=== PATIENT | male | born 1950 | race Caucasian/White ===

== ENCOUNTER 2021-06-18 16:27 | Emergency (ER) | payer MEDICARE ==
[2021-06-18 17:06] LABS: Hemoglobin 14.1 g/dL (14.0-18.0); Mean Corpuscular HGB CONC 32.5 g/dL (32.0-36.0); Mean Corpuscular Hemoglobin 29.8 pg (27.0-31.0); Mean Corpuscular Volume 91.6 fL (78.0-98.0); Mean Platelet Volume 8.4 fL (7.4-10.4); Platelet Count 218 thou/uL (130-400); RBC Distribution Width 14.2 % (11.5-14.5); Red Blood Cell (RBC) Count 4.72 mill/uL (4.70-6.10); White Blood Cell (WBC) Count 8.2 thou/uL (4.8-10.8)
[2021-06-18] MEDS ORDERED: Nitroglycerin 2% Ointment 1 INCH/1 GM Packet ONE (17:12)
[2021-06-18] MEDS ORDERED: Furosemide 40 MG/4 ML VIAL ONE (17:12)
[2021-06-18 17:14] LABS: ALT (SGPT) 60 U/L (8-55); Alkaline Phosphatase 114 U/L (40-110); BUN (Urea Nitrogen) 28 mg/dL (8.4-25.7); Bilirubin, Total 0.4 mg/dL (0.2-1.2); Calc. Creatinine Clearance 0 mL/min (70-130); Chloride 99 mmol/L (98-107); Globulin 3.8 g/dL (2.4-3.5); Protein, Total 7.8 g/dL (5.8-8.1)
[2021-06-18 17:56] LABS: Band 8 % (5-11); Eosinophils 2 % (0-10); Lymphocytes 26 % (21-51); MDiff Complete? YES; Monocytes 7 % (0-10); Neutrophil 55 % (42-75)
[2021-06-18 18:01] LABS: SARS-CoV-2 NAA Rapid Test Not Detected (NotDetected)
[2021-06-18 18:01] LABS: AST (SGOT) 34 U/L (5-34); Anion Gap 18 mmol/L (10-20); Calcium 9.4 mg/dL (7.8-10.44); Carbon Dioxide 29 mmol/L (23-31); Glucose 147 mg/dL (80-115); Potassium 4.7 mmol/L (3.5-5.1); Sodium 141 mmol/L (136-145)
== END 2021-06-18 19:46 | disposition short-term general hospital (02) ==
LOC: BURERS 16:27
DX: I11.0 Hypertensive heart disease with heart failure (principal); I50.9 Heart failure, unspecified; I48.92 Unspecified atrial flutter; E66.09 Other obesity due to excess calories; Z20.822 Contact with and (suspected) exposure to COVID-19; J44.9 Chronic obstructive pulmonary disease, unspecified; Z87.891 Personal history of nicotine dependence; Z79.82 Long term (current) use of aspirin
CPT/HCPCS: 71046; 80053; 83605; 83880; 84443; 84484; 85025; 93005; 94760; 96374; J1940; J7620; U0002

== ENCOUNTER 2021-07-03 14:15 | Inpatient (IN) | payer MEDICARE ==
[2021-07-03 15:27] LABS: #Basophils 0.1 thou/uL (0.0-0.2); #Eosinphils 0.1 thou/uL (0.0-0.7); #Lymphocytes 1.8 thou/uL (1.20-3.40); #Monocytes 1.1 thou/uL (0.11-0.59); #Neutrophils 8.1 thou/uL (1.40-6.50); %Basophils 0.5 % (0.0-1.0); %Lymphocytes 15.8 % (21.0-51.0); %Monocytes 9.7 % (0.0-10.0); Hemoglobin 14.1 g/dL (14.0-18.0); Mean Corpuscular HGB CONC 31.6 g/dL (32.0-36.0); Mean Corpuscular Hemoglobin 28.9 pg (27.0-31.0); Mean Corpuscular Volume 91.5 fL (78.0-98.0); Mean Platelet Volume 7.5 fL (7.4-10.4); Platelet Count 265 thou/uL (130-400); RBC Distribution Width 14.4 % (11.5-14.5); Red Blood Cell (RBC) Count 4.86 mill/uL (4.70-6.10); White Blood Cell (WBC) Count 11.1 thou/uL (4.8-10.8)
[2021-07-03 15:44] LABS: ALT (SGPT) 33 U/L (8-55); AST (SGOT) 18 U/L (5-34); Albumin 4.1 g/dL (3.4-4.8); Alkaline Phosphatase 86 U/L (40-110); Anion Gap 15 mmol/L (10-20); BUN (Urea Nitrogen) 31 mg/dL (8.4-25.7); Bilirubin, Total 0.5 mg/dL (0.2-1.2); Calc. Creatinine Clearance 0 mL/min (70-130); Calcium 9.7 mg/dL (7.8-10.44); Carbon Dioxide 30 mmol/L (23-31); Chloride 97 mmol/L (98-107); Globulin 3.8 g/dL (2.4-3.5); Glucose 149 mg/dL (80-115); Potassium 4.9 mmol/L (3.5-5.1); Protein, Total 7.9 g/dL (5.8-8.1); Sodium 137 mmol/L (136-145)
[2021-07-03 19:22] LABS: Base Excess-Venous 6.1 mmol/L (-2.0 to 3.0); Bicarbonate (HCO3v) 31.7 mmol/L (22.0-28.0); CO2 Tension (PvCO2) 47.5 mmHg (42.0-51.0); Calcium, Ionized 1.08 mmol/L (1.15-1.33); Chloride 97 mmol/L (98-107); Hemoglobin - Calc 17.6 g/dL (14.0-18.0); Potassium 4.9 mmol/L (3.5-5.1); Sodium 138 mmol/L (138-145); T. Carbon Dioxide 33.2 mmol/L (22.0-28.0); vO2 Saturation-calc 87.6 % (60.0-85.0)
[2021-07-03] MEDS ORDERED: Doxycycline 100 MG CAP ONE (21:16)
[2021-07-04] MEDS ORDERED: Doxycycline 100 MG CAP ONE (09:29)
[2021-07-04 11:18] LABS: SARS-CoV-2 NAA Rapid Test Not Detected (NotDetected)
[2021-07-04] MEDS ORDERED: Aspirin Chewable 81 MG TAB ONE (11:21)
[2021-07-04] MEDS ORDERED: Potassium Chloride 20 MEQ TAB ONE (11:21)
[2021-07-04] MEDS ORDERED: Carvedilol 6.25 MG TAB ONE (11:21)
[2021-07-04] MEDS ORDERED: Amlodipine 5 MG TAB ONE (11:21)
[2021-07-04] MEDS ORDERED: busPIRone HCl 5 MG TAB PO SCH (11:45)
[2021-07-04] MEDS ORDERED: Lorazepam 0.5 MG TAB ONE (11:46)
[2021-07-04] MEDS ORDERED: Furosemide 40 MG TAB ONE (11:46)
[2021-07-04] MEDS ORDERED: HYDROcodone/Acetaminophen 5/325 mg Tablet PO PRN (14:29)
[2021-07-04] MEDS ORDERED: Ondansetron ODT 4 MG TAB SL PRN (14:30)
[2021-07-04] MEDS ORDERED: Acetaminophen 325 MG TAB PO PRN (14:30)
[2021-07-04] MEDS ORDERED: Ondansetron PF 4 MG/2 ML Vial IVP PRN (14:30)
[2021-07-04 14:33] VITALS: BMI 47.9
[2021-07-04] MEDS ORDERED: methylPREDNISolone Sod Succ 40 MG VIAL IVP SCH (15:00)
[2021-07-04] MEDS ORDERED: Bisacodyl 10 MG SUPP PR PRN (15:29)
[2021-07-04] MEDS ORDERED: Bisacodyl 5 MG TAB PO PRN (15:29)
[2021-07-04] MEDS: Potassium Chloride 20 MEQ TAB PO SCH (18:17)
[2021-07-04] MEDS: Carvedilol 25 MG TAB PO SCH (18:18)
[2021-07-04] MEDS: Famotidine 20 MG TAB PO SCH (21:13)
[2021-07-04] MEDS: Apixaban 5 MG TAB PO SCH (21:13)
[2021-07-04] MEDS: methylPREDNISolone Sod Succ 40 MG VIAL IVP SCH (21:14)
[2021-07-04] MEDS: busPIRone HCl 5 MG TAB PO SCH (21:16)
[2021-07-05 06:44] LABS: #Monocytes 0.3 thou/uL (0.11-0.59); #Neutrophils 10.8 thou/uL (1.40-6.50); %Basophils 0.2 % (0.0-1.0); %Eosinophils 0.2 % (0.0-10.0); %Lymphocytes 8.3 % (21.0-51.0); %Monocytes 2.8 % (0.0-10.0); %Neutrophils 88.6 % (42.0-75.0); Hemoglobin 13.8 g/dL (14.0-18.0); Mean Corpuscular Hemoglobin 29.2 pg (27.0-31.0); Mean Corpuscular Volume 94.3 fL (78.0-98.0); Mean Platelet Volume 7.4 fL (7.4-10.4); Platelet Count 226 thou/uL (130-400); RBC Distribution Width 14.4 % (11.5-14.5); Red Blood Cell (RBC) Count 4.71 mill/uL (4.70-6.10); White Blood Cell (WBC) Count 12.2 thou/uL (4.8-10.8)
[2021-07-05 07:02] LABS: ALT (SGPT) 41 U/L (8-55); AST (SGOT) 26 U/L (5-34); Albumin 3.9 g/dL (3.4-4.8); Alkaline Phosphatase 79 U/L (40-110); Anion Gap 15 mmol/L (10-20); BUN (Urea Nitrogen) 33 mg/dL (8.4-25.7); Bilirubin, Total 0.2 mg/dL (0.2-1.2); Calc. Creatinine Clearance 127 mL/min (70-130); Calcium 8.9 mg/dL (7.8-10.44); Carbon Dioxide 29 mmol/L (23-31); Chloride 97 mmol/L (98-107); Globulin 3.8 g/dL (2.4-3.5); Glucose 296 mg/dL (80-115); Potassium 6.4 mmol/L (3.5-5.1); Protein, Total 7.7 g/dL (5.8-8.1); Sodium 135 mmol/L (136-145)
[2021-07-05] MEDS: Aspirin Chewable 81 MG TAB PO SCH (08:45)
[2021-07-05] MEDS: Potassium Chloride 20 MEQ TAB PO SCH (08:45)
[2021-07-05] MEDS: Amlodipine 10 MG TAB PO SCH (08:48)
[2021-07-05] MEDS: busPIRone HCl 5 MG TAB PO SCH ×2 (08:48→20:29)
[2021-07-05] MEDS: Famotidine 20 MG TAB PO SCH ×2 (08:49→20:30)
[2021-07-05] MEDS: Carvedilol 25 MG TAB PO SCH (08:49)
[2021-07-05] MEDS: Furosemide 40 MG TAB PO SCH ×2 (08:49→14:53)
[2021-07-05] MEDS: methylPREDNISolone Sod Succ 40 MG VIAL IVP SCH ×2 (08:50→20:28)
[2021-07-05] MEDS: Lisinopril 5 MG TAB PO SCH (08:51)
[2021-07-05] MEDS: Apixaban 5 MG TAB PO SCH ×3 (08:52→20:29)
[2021-07-05] MEDS ORDERED: Dextrose 50% Abboject 50 ML SYRINGE SLOW IVP PRN (12:54)
[2021-07-05] MEDS ORDERED: Dextrose 5% in Water 1,000 ML IV PRN (12:54)
[2021-07-05] MEDS ORDERED: HumaLOG 300 UNITS/3 ML VIAL SC PRN (12:54)
[2021-07-05 13:46] LABS: Potassium 5.7 mmol/L (3.5-5.1)
[2021-07-05] MEDS ORDERED: FLU VACC QS2021-22(65YR UP)/PF 240 MCG/0.7 ML SYRINGE IM ONE (15:00)
[2021-07-05] MEDS: Carvedilol 6.25 MG TAB PO SCH (17:27)
[2021-07-05] MEDS: HumaLOG 300 UNITS/3 ML VIAL SC PRN (17:33)
[2021-07-05] MEDS: Nicotine 21 MG PATCH TOP SCH (20:26)
[2021-07-05] MEDS: Nystatin Powder 15 GM BOT TOP PRN (22:56)
[2021-07-05] MEDS: Melatonin 3 MG TAB PO PRN (22:56)
[2021-07-06] MEDS ORDERED: Nicotine 21 MG PATCH TOP SCH (09:00)
[2021-07-06] MEDS: Lisinopril 5 MG TAB PO SCH (09:53)
[2021-07-06] MEDS: Aspirin Chewable 81 MG TAB PO SCH (09:53)
[2021-07-06] MEDS: busPIRone HCl 5 MG TAB PO SCH ×2 (09:54→20:56)
[2021-07-06] MEDS: Amlodipine 10 MG TAB PO SCH (09:55)
[2021-07-06] MEDS: Carvedilol 6.25 MG TAB PO SCH ×2 (09:55→15:17)
[2021-07-06] MEDS: Apixaban 5 MG TAB PO SCH ×2 (09:55→20:57)
[2021-07-06] MEDS: Famotidine 20 MG TAB PO SCH ×2 (09:55→20:57)
[2021-07-06] MEDS: Furosemide 40 MG TAB PO SCH ×2 (09:56→15:17)
[2021-07-06] MEDS: methylPREDNISolone Sod Succ 40 MG VIAL IVP SCH ×2 (09:56→20:56)
[2021-07-06] MEDS: HumaLOG 300 UNITS/3 ML VIAL SC PRN ×3 (09:57→17:31)
[2021-07-06 14:11] LABS: ALT (SGPT) 36 U/L (8-55); AST (SGOT) 16 U/L (5-34); Albumin 3.7 g/dL (3.4-4.8); Alkaline Phosphatase 89 U/L (40-110); Anion Gap 13 mmol/L (10-20); BUN (Urea Nitrogen) 32 mg/dL (8.4-25.7); Bilirubin, Total 0.3 mg/dL (0.2-1.2); Calc. Creatinine Clearance 131 mL/min (70-130); Calcium 8.7 mg/dL (7.8-10.44); Carbon Dioxide 33 mmol/L (23-31); Chloride 92 mmol/L (98-107); Globulin 3.1 g/dL (2.4-3.5); Glucose 300 mg/dL (80-115); Potassium 4.9 mmol/L (3.5-5.1); Protein, Total 6.8 g/dL (5.8-8.1); Sodium 133 mmol/L (136-145)
[2021-07-06] MEDS ORDERED: methylPREDNISolone Sod Succ 40 MG VIAL IVP SCH (17:45)
[2021-07-06] MEDS: Nystatin Powder 15 GM BOT TOP PRN (20:56)
[2021-07-06] MEDS: Nicotine 21 MG PATCH TOP SCH (20:56)
[2021-07-06] MEDS: Melatonin 3 MG TAB PO PRN (23:22)
[2021-07-07 05:36] LABS: Hemoglobin 13.9 g/dL (14.0-18.0); Platelet Count 267 thou/uL (130-400)
[2021-07-07] MEDS: Amlodipine 10 MG TAB PO SCH (10:21)
[2021-07-07] MEDS: Furosemide 40 MG TAB PO SCH ×2 (10:22→12:27)
[2021-07-07] MEDS: Lisinopril 5 MG TAB PO SCH (10:23)
[2021-07-07] MEDS: Famotidine 20 MG TAB PO SCH ×2 (10:23→20:57)
[2021-07-07] MEDS: Apixaban 5 MG TAB PO SCH ×2 (10:23→20:57)
[2021-07-07] MEDS: Aspirin Chewable 81 MG TAB PO SCH (10:24)
[2021-07-07] MEDS: HumaLOG 300 UNITS/3 ML VIAL SC PRN ×3 (10:27→16:57)
[2021-07-07] MEDS: methylPREDNISolone Sod Succ 40 MG VIAL IVP SCH ×2 (10:28→21:01)
[2021-07-07] MEDS: busPIRone HCl 5 MG TAB PO SCH (10:42)
[2021-07-07] MEDS: Carvedilol 6.25 MG TAB PO SCH ×2 (10:42→16:56)
[2021-07-07] MEDS ORDERED: hydrOXYzine 25 MG TAB PO PRN (17:25)
[2021-07-07] MEDS: Nystatin Powder 15 GM BOT TOP PRN (18:46)
[2021-07-07] MEDS: Nicotine 21 MG PATCH TOP SCH ×2 (20:53→21:00)
[2021-07-07] MEDS: traZODone HCl 50 MG TAB PO PRN (20:56)
[2021-07-08] MEDS: Furosemide 40 MG TAB PO SCH (08:44)
[2021-07-08] MEDS: Aspirin Chewable 81 MG TAB PO SCH (08:44)
[2021-07-08] MEDS: Famotidine 20 MG TAB PO SCH ×2 (08:44→20:40)
[2021-07-08] MEDS: Carvedilol 6.25 MG TAB PO SCH ×2 (08:44→17:12)
[2021-07-08] MEDS: methylPREDNISolone Sod Succ 40 MG VIAL IVP SCH ×2 (08:44→20:38)
[2021-07-08] MEDS: Amlodipine 10 MG TAB PO SCH (08:44)
[2021-07-08] MEDS: Apixaban 5 MG TAB PO SCH ×2 (08:45→20:41)
[2021-07-08] MEDS: Lisinopril 5 MG TAB PO SCH (08:45)
[2021-07-08] MEDS: HumaLOG 300 UNITS/3 ML VIAL SC PRN ×3 (08:57→17:14)
[2021-07-08] MEDS ORDERED: Escitalopram Oxalate 10 mg Tablet PO SCH (09:00)
[2021-07-08] MEDS ORDERED: Furosemide 40 MG TAB PO SCH (14:00)
[2021-07-08] MEDS ORDERED: Acetaminophen 325 MG TAB PO PRN (17:07)
[2021-07-08] MEDS ORDERED: HYDROcodone/Acetaminophen 5/325 mg Tablet PO PRN (17:08)
[2021-07-08 18:16] VITALS: BP 133/71; TEMP 98.3
[2021-07-08] MEDS ORDERED: Nicotine 21 MG PATCH TOP SCH (21:00)
[2021-07-08] MEDS: traZODone HCl 50 MG TAB PO PRN (21:05)
[2021-07-09] MEDS ORDERED: Furosemide 40 MG TAB PO SCH (06:00)
[2021-07-09] MEDS ORDERED: Amlodipine 10 MG TAB PO SCH (09:00)
== END 2021-07-08 21:40 | disposition swing bed (61) | DRG 189 ==
LOC: BURERS 14:15 → BURMED 07-04 11:24
PROVIDERS: ADMIT Family Medicine; ATTEND Family Medicine
DX: J96.21 Acute and chronic respiratory failure with hypoxia (principal); J44.1 Chronic obstructive pulmonary disease with (acute) exacerbation; Z68.42 Body mass index [BMI] 45.0-49.9, adult; I50.9 Heart failure, unspecified; I48.91 Unspecified atrial fibrillation; I11.0 Hypertensive heart disease with heart failure; J44.9 Chronic obstructive pulmonary disease, unspecified; Z20.822 Contact with and (suspected) exposure to COVID-19; F41.9 Anxiety disorder, unspecified; E66.01 Morbid (severe) obesity due to excess calories; Z87.891 Personal history of nicotine dependence; Z79.01 Long term (current) use of anticoagulants
CPT/HCPCS: 36415; 36416; 71046; 80053; 82330; 82565; 82803; 83880; 84484; 85014; 85018; 85025; 85049; 93005; 96365; 96375; J1815; J1940; J1956; J2920; J2930; J7620; U0002

== ENCOUNTER 2021-07-08 15:39 | Inpatient (IN) | payer MEDICARE ==
[2021-07-08] MEDS ORDERED: hydrOXYzine 25 MG TAB PO PRN (22:41)
[2021-07-08] MEDS ORDERED: Nystatin Powder 15 GM BOT TOP PRN ×2 (22:41)
[2021-07-08] MEDS ORDERED: Ondansetron ODT 4 MG TAB PO PRN (22:41)
[2021-07-08] MEDS ORDERED: Bisacodyl 5 MG TAB PO PRN ×2 (22:41)
[2021-07-08] MEDS ORDERED: Bisacodyl 10 MG SUPP PR PRN (22:41)
[2021-07-08] MEDS ORDERED: Acetaminophen 325 MG TAB PO PRN (22:41)
[2021-07-08] MEDS ORDERED: traZODone HCl 50 MG TAB PO PRN (22:41)
[2021-07-08] MEDS ORDERED: Non-Formulary Item 1 EACH (Acetaminophen [Tylenol] 325 MG Capsule) PO PRN (22:41)
[2021-07-08] MEDS ORDERED: HYDROcodone/Acetaminophen 5/325 mg Tablet PO SCH (22:45)
[2021-07-08] MEDS ORDERED: HumaLOG 300 UNITS/3 ML VIAL SC PRN (22:55)
[2021-07-08] MEDS ORDERED: Dextrose 50% Abboject 50 ML SYRINGE SLOW IVP PRN (22:55)
[2021-07-08] MEDS ORDERED: Dextrose 5% in Water 1,000 ML IV PRN (22:55)
[2021-07-09] MEDS ORDERED: Carvedilol 6.25 MG TAB PO SCH (08:00)
[2021-07-09] MEDS ORDERED: Famotidine 20 MG TAB PO SCH (09:00)
[2021-07-09] MEDS ORDERED: Bisacodyl 10 MG SUPP PR SCH (09:00)
[2021-07-09] MEDS ORDERED: hydrOXYzine 25 MG TAB PO SCH (09:00)
[2021-07-09] MEDS ORDERED: Escitalopram Oxalate 10 mg Tablet PO SCH (09:00)
[2021-07-09] MEDS: Nicotine 21 MG PATCH TD SCH (10:10)
[2021-07-09] MEDS: predniSONE 20 MG TAB PO SCH (10:13)
[2021-07-09] MEDS: Carvedilol 6.25 MG TAB PO SCH ×2 (10:13→17:32)
[2021-07-09] MEDS: Amlodipine 10 MG TAB PO SCH (10:14)
[2021-07-09] MEDS: Apixaban 5 MG TAB PO SCH ×2 (10:15→21:09)
[2021-07-09] MEDS: Aspirin Chewable 81 MG TAB PO SCH (10:15)
[2021-07-09] MEDS: busPIRone HCl 5 MG TAB PO SCH ×2 (10:15→21:09)
[2021-07-09] MEDS: Lisinopril 5 MG TAB PO SCH (10:16)
[2021-07-09] MEDS: Furosemide 40 MG TAB PO SCH ×2 (10:16→14:12)
[2021-07-09] MEDS: Famotidine 20 MG TAB PO SCH ×2 (10:16→21:08)
[2021-07-09] MEDS: Escitalopram Oxalate 10 mg Tablet PO SCH (10:16)
[2021-07-09] MEDS: HumaLOG 300 UNITS/3 ML VIAL SC PRN (17:33)
[2021-07-09] MEDS ORDERED: Nicotine 21 MG PATCH TOP SCH (21:00)
[2021-07-09] MEDS: traZODone HCl 50 MG TAB PO PRN (21:08)
[2021-07-10 05:11] LABS: #Basophils 0.3 thou/uL (0.0-0.2); #Lymphocytes 2.1 thou/uL (1.20-3.40); #Monocytes 1.2 thou/uL (0.11-0.59); #Neutrophils 8.1 thou/uL (1.40-6.50); %Basophils 2.2 % (0.0-1.0); %Eosinophils 0.3 % (0.0-10.0); %Lymphocytes 18.2 % (21.0-51.0); %Neutrophils 69.3 % (42.0-75.0); Hemoglobin 15.3 g/dL (14.0-18.0); Mean Corpuscular HGB CONC 31.6 g/dL (32.0-36.0); Mean Corpuscular Hemoglobin 28.9 pg (27.0-31.0); Mean Corpuscular Volume 91.5 fL (78.0-98.0); Mean Platelet Volume 7.5 fL (7.4-10.4); Platelet Count 226 thou/uL (130-400); RBC Distribution Width 13.7 % (11.5-14.5); Red Blood Cell (RBC) Count 5.31 mill/uL (4.70-6.10); White Blood Cell (WBC) Count 11.7 thou/uL (4.8-10.8)
[2021-07-10 05:26] LABS: ALT (SGPT) 62 U/L (8-55); AST (SGOT) 28 U/L (5-34); Albumin 3.5 g/dL (3.4-4.8); Alkaline Phosphatase 73 U/L (40-110); Anion Gap 15 mmol/L (10-20); BUN (Urea Nitrogen) 29 mg/dL (8.4-25.7); Bilirubin, Total Less than 0.2 mg/dL (0.2-1.2); Calc. Creatinine Clearance 142 mL/min (70-130); Calcium 8.7 mg/dL (7.8-10.44); Carbon Dioxide 37 mmol/L (23-31); Globulin 2.9 g/dL (2.4-3.5); Glucose 137 mg/dL (80-115); Protein, Total 6.4 g/dL (5.8-8.1)
[2021-07-10 05:30] LABS: Chloride 91 mmol/L (98-107); Potassium 4.1 mmol/L (3.5-5.1); Sodium 138 mmol/L (136-145)
[2021-07-10] MEDS: Famotidine 20 MG TAB PO SCH ×2 (09:53→21:31)
[2021-07-10] MEDS: busPIRone HCl 5 MG TAB PO SCH ×2 (09:53→21:30)
[2021-07-10] MEDS: Carvedilol 6.25 MG TAB PO SCH ×2 (09:54→17:40)
[2021-07-10] MEDS: Aspirin Chewable 81 MG TAB PO SCH (09:54)
[2021-07-10] MEDS: predniSONE 20 MG TAB PO SCH (09:54)
[2021-07-10] MEDS: Lisinopril 5 MG TAB PO SCH (09:55)
[2021-07-10] MEDS: Furosemide 40 MG TAB PO SCH ×2 (09:55→12:58)
[2021-07-10] MEDS: Apixaban 5 MG TAB PO SCH ×2 (09:56→21:31)
[2021-07-10] MEDS: Amlodipine 10 MG TAB PO SCH (09:56)
[2021-07-10] MEDS: Escitalopram Oxalate 10 mg Tablet PO SCH (09:57)
[2021-07-10] MEDS: Nicotine 21 MG PATCH TD SCH (12:40)
[2021-07-10] MEDS: HumaLOG 300 UNITS/3 ML VIAL SC PRN (17:42)
[2021-07-10] MEDS: Melatonin 3 MG TAB PO PRN (22:08)
[2021-07-11] MEDS: Nicotine 21 MG PATCH TD SCH (09:09)
[2021-07-11] MEDS: busPIRone HCl 5 MG TAB PO SCH ×2 (09:10→20:56)
[2021-07-11] MEDS: Escitalopram Oxalate 10 mg Tablet PO SCH (09:10)
[2021-07-11] MEDS: Famotidine 20 MG TAB PO SCH ×2 (09:10→20:57)
[2021-07-11] MEDS: Lisinopril 5 MG TAB PO SCH (09:10)
[2021-07-11] MEDS: Apixaban 5 MG TAB PO SCH ×2 (09:10→20:56)
[2021-07-11] MEDS: predniSONE 20 MG TAB PO SCH (09:12)
[2021-07-11] MEDS: Amlodipine 10 MG TAB PO SCH (09:13)
[2021-07-11] MEDS: Carvedilol 6.25 MG TAB PO SCH ×2 (09:13→17:29)
[2021-07-11] MEDS: Furosemide 40 MG TAB PO SCH ×2 (09:13→14:58)
[2021-07-11] MEDS: Aspirin Chewable 81 MG TAB PO SCH (09:13)
[2021-07-11] MEDS: HumaLOG 300 UNITS/3 ML VIAL SC PRN (19:20)
[2021-07-11] MEDS ORDERED: HYDROcodone/Acetaminophen 5/325 mg Tablet PO PRN (23:12)
[2021-07-12] MEDS: Melatonin 3 MG TAB PO PRN ×2 (01:19→22:40)
[2021-07-12] MEDS: Lisinopril 5 MG TAB PO SCH (08:55)
[2021-07-12] MEDS: busPIRone HCl 5 MG TAB PO SCH ×2 (08:55→20:56)
[2021-07-12] MEDS: Apixaban 5 MG TAB PO SCH ×2 (08:56→20:56)
[2021-07-12] MEDS: Amlodipine 10 MG TAB PO SCH (08:56)
[2021-07-12] MEDS: predniSONE 20 MG TAB PO SCH (08:57)
[2021-07-12] MEDS: Escitalopram Oxalate 10 mg Tablet PO SCH (08:57)
[2021-07-12] MEDS: Famotidine 20 MG TAB PO SCH ×2 (08:57→20:57)
[2021-07-12] MEDS: Aspirin Chewable 81 MG TAB PO SCH (08:58)
[2021-07-12] MEDS: Carvedilol 6.25 MG TAB PO SCH ×2 (08:58→17:16)
[2021-07-12] MEDS: Nicotine 21 MG PATCH TD SCH ×2 (08:58→14:13)
[2021-07-12] MEDS: Furosemide 40 MG TAB PO SCH ×2 (08:58→14:28)
[2021-07-12 16:20] LABS: Prothrombin Time 13.1 sec (12.0-14.7)
[2021-07-12] MEDS: Warfarin Sodium 5 MG TAB PO SCH (17:17)
[2021-07-12] MEDS: HumaLOG 300 UNITS/3 ML VIAL SC PRN (17:17)
[2021-07-13 07:01] LABS: INR-International Normal Ratio 0.9; Prothrombin Time 12.5 sec (12.0-14.7)
[2021-07-13] MEDS: Lisinopril 5 MG TAB PO SCH (09:50)
[2021-07-13] MEDS: Nicotine 21 MG PATCH TD SCH (09:50)
[2021-07-13] MEDS: busPIRone HCl 5 MG TAB PO SCH ×2 (09:51→21:37)
[2021-07-13] MEDS: Apixaban 5 MG TAB PO SCH ×2 (09:52→21:39)
[2021-07-13] MEDS: Furosemide 40 MG TAB PO SCH ×2 (09:52→13:49)
[2021-07-13] MEDS: predniSONE 20 MG TAB PO SCH (09:52)
[2021-07-13] MEDS: Amlodipine 10 MG TAB PO SCH (09:52)
[2021-07-13] MEDS: Escitalopram Oxalate 10 mg Tablet PO SCH (09:52)
[2021-07-13] MEDS: Famotidine 20 MG TAB PO SCH ×2 (09:53→21:38)
[2021-07-13] MEDS: Carvedilol 6.25 MG TAB PO SCH ×2 (09:53→18:07)
[2021-07-13] MEDS: Aspirin Chewable 81 MG TAB PO SCH (09:54)
[2021-07-13] MEDS: Warfarin Sodium 5 MG TAB PO SCH (18:04)
[2021-07-13] MEDS: HumaLOG 300 UNITS/3 ML VIAL SC PRN (18:55)
[2021-07-13] MEDS: traZODone HCl 50 MG TAB PO PRN (21:38)
[2021-07-13] MEDS: rOPINIRole HCl 0.25 MG TAB PO SCH (21:38)
[2021-07-13 23:18] LABS: SARS-CoV-2 PCR by NAA Not Detected (NotDetected)
[2021-07-14 05:50] LABS: Hemoglobin 15.3 g/dL (14.0-18.0); Platelet Count 173 thou/uL (130-400)
[2021-07-14 07:15] LABS: INR-International Normal Ratio 1.1; Prothrombin Time 13.9 sec (12.0-14.7)
[2021-07-14] MEDS: busPIRone HCl 5 MG TAB PO SCH ×2 (09:06→21:48)
[2021-07-14] MEDS: predniSONE 20 MG TAB PO SCH (09:06)
[2021-07-14] MEDS: Lisinopril 5 MG TAB PO SCH (09:07)
[2021-07-14] MEDS: Aspirin Chewable 81 MG TAB PO SCH (09:07)
[2021-07-14] MEDS: Carvedilol 6.25 MG TAB PO SCH ×2 (09:07→17:41)
[2021-07-14] MEDS: Furosemide 40 MG TAB PO SCH ×2 (09:07→15:28)
[2021-07-14] MEDS: Amlodipine 10 MG TAB PO SCH (09:07)
[2021-07-14] MEDS: Escitalopram Oxalate 10 mg Tablet PO SCH (09:07)
[2021-07-14] MEDS: Nicotine 21 MG PATCH TD SCH (09:08)
[2021-07-14] MEDS: Famotidine 20 MG TAB PO SCH ×2 (09:09→21:48)
[2021-07-14] MEDS: Apixaban 5 MG TAB PO SCH ×2 (09:41→21:48)
[2021-07-14] MEDS ORDERED: Warfarin Sodium 5 MG TAB PO SCH (17:00)
[2021-07-14] MEDS ORDERED: Warfarin Sodium 2.5 MG TAB PO SCH (17:00)
[2021-07-14] MEDS: Warfarin Sodium 5 MG TAB PO SCH (17:41)
[2021-07-14] MEDS: rOPINIRole HCl 0.25 MG TAB PO SCH (21:48)
[2021-07-14] MEDS: Melatonin 3 MG TAB PO PRN (21:53)
[2021-07-15 06:19] LABS: INR-International Normal Ratio 1.1; Prothrombin Time 14.7 sec (12.0-14.7)
[2021-07-15] MEDS: Enoxaparin Sodium 100 MG/ML SYRINGE SC SCH ×2 (10:19→20:47)
[2021-07-15] MEDS: Enoxaparin Sodium 30 MG/0.3 ML SYRINGE SC SCH ×2 (10:19→20:47)
[2021-07-15] MEDS: Nicotine 21 MG PATCH TD SCH ×2 (10:20→20:47)
[2021-07-15] MEDS: Aspirin Chewable 81 MG TAB PO SCH (10:20)
[2021-07-15] MEDS: busPIRone HCl 5 MG TAB PO SCH ×2 (10:20→20:46)
[2021-07-15] MEDS: Famotidine 20 MG TAB PO SCH ×2 (10:21→20:47)
[2021-07-15] MEDS: Furosemide 40 MG TAB PO SCH ×2 (10:21→14:36)
[2021-07-15] MEDS: Escitalopram Oxalate 10 mg Tablet PO SCH (10:21)
[2021-07-15] MEDS: Amlodipine 10 MG TAB PO SCH (10:21)
[2021-07-15] MEDS: Lisinopril 5 MG TAB PO SCH (10:22)
[2021-07-15] MEDS: predniSONE 20 MG TAB PO SCH (10:25)
[2021-07-15] MEDS: Carvedilol 6.25 MG TAB PO SCH ×2 (10:25→17:52)
[2021-07-15] MEDS ORDERED: HYDROcodone/Acetaminophen 5/325 mg Tablet PO PRN (13:28)
[2021-07-15] MEDS: Warfarin Sodium 5 MG TAB PO SCH (17:52)
[2021-07-15] MEDS: HumaLOG 300 UNITS/3 ML VIAL SC PRN (17:53)
[2021-07-15] MEDS: rOPINIRole HCl 0.25 MG TAB PO SCH (20:46)
[2021-07-15] MEDS: Melatonin 3 MG TAB PO PRN (20:46)
[2021-07-16 07:28] LABS: INR-International Normal Ratio 1.3; Prothrombin Time 16.7 sec (12.0-14.7)
[2021-07-16] MEDS ORDERED: predniSONE 20 MG TAB PO SCH ×2 (08:00→10:00)
[2021-07-16] MEDS: Famotidine 20 MG TAB PO SCH ×2 (09:04→20:47)
[2021-07-16] MEDS: Furosemide 40 MG TAB PO SCH ×2 (09:04→15:06)
[2021-07-16] MEDS: Lisinopril 5 MG TAB PO SCH (09:05)
[2021-07-16] MEDS: Aspirin Chewable 81 MG TAB PO SCH (09:07)
[2021-07-16] MEDS: Amlodipine 10 MG TAB PO SCH (09:07)
[2021-07-16] MEDS: busPIRone HCl 5 MG TAB PO SCH (09:07)
[2021-07-16] MEDS: Enoxaparin Sodium 30 MG/0.3 ML SYRINGE SC SCH (09:08)
[2021-07-16] MEDS: Carvedilol 6.25 MG TAB PO SCH ×2 (09:08→17:58)
[2021-07-16] MEDS: Escitalopram Oxalate 10 mg Tablet PO SCH (09:08)
[2021-07-16] MEDS: Enoxaparin Sodium 100 MG/ML SYRINGE SC SCH (09:09)
[2021-07-16 11:52] VITALS: BMI 43.6
[2021-07-16] MEDS ORDERED: Warfarin Sodium 2.5 MG TAB PO SCH (17:00)
[2021-07-16] MEDS: Warfarin Sodium 5 MG TAB PO SCH (17:59)
[2021-07-16] MEDS: traZODone HCl 50 MG TAB PO PRN (20:47)
[2021-07-16] MEDS: Nicotine 21 MG PATCH TD SCH (20:47)
[2021-07-16] MEDS: rOPINIRole HCl 0.25 MG TAB PO SCH (20:47)
[2021-07-17] MEDS: busPIRone HCl 5 MG TAB PO SCH ×3 (00:29→22:17)
[2021-07-17 06:22] LABS: INR-International Normal Ratio 1.4; Prothrombin Time 16.9 sec (12.0-14.7)
[2021-07-17 07:13] LABS: Hemoglobin 14.4 g/dL (14.0-18.0); Mean Corpuscular HGB CONC 32.5 g/dL (32.0-36.0); Mean Corpuscular Hemoglobin 29.7 pg (27.0-31.0); Mean Corpuscular Volume 91.4 fL (78.0-98.0); Mean Platelet Volume 8.3 fL (7.4-10.4); Platelet Count 195 thou/uL (130-400); RBC Distribution Width 13.7 % (11.5-14.5); Red Blood Cell (RBC) Count 4.84 mill/uL (4.70-6.10); White Blood Cell (WBC) Count 9.4 thou/uL (4.8-10.8)
[2021-07-17 07:51] LABS: Lymphocytes 26 % (21-51); MDiff Complete? YES; Monocytes 11 % (0-10); Neutrophil 63 % (42-75); Platelet Morphology Comment Appears Adequate; RBC Morphology Normal
[2021-07-17] MEDS: Lisinopril 5 MG TAB PO SCH (09:31)
[2021-07-17] MEDS: Furosemide 40 MG TAB PO SCH ×2 (09:31→14:29)
[2021-07-17] MEDS: Escitalopram Oxalate 10 mg Tablet PO SCH (09:31)
[2021-07-17] MEDS: Amlodipine 10 MG TAB PO SCH (09:31)
[2021-07-17] MEDS: Famotidine 20 MG TAB PO SCH ×2 (09:31→22:17)
[2021-07-17] MEDS: Aspirin Chewable 81 MG TAB PO SCH (09:31)
[2021-07-17] MEDS: Carvedilol 6.25 MG TAB PO SCH ×2 (09:31→17:22)
[2021-07-17] MEDS: predniSONE 20 MG TAB PO SCH (09:32)
[2021-07-17] MEDS: Warfarin Sodium 5 MG TAB PO SCH (17:24)
[2021-07-17] MEDS: HumaLOG 300 UNITS/3 ML VIAL SC PRN (18:58)
[2021-07-17] MEDS: traZODone HCl 50 MG TAB PO PRN (22:16)
[2021-07-17] MEDS: rOPINIRole HCl 0.25 MG TAB PO SCH (22:17)
[2021-07-17] MEDS: Nicotine 21 MG PATCH TD SCH (22:19)
[2021-07-17] MEDS: Melatonin 3 MG TAB PO PRN (23:45)
[2021-07-18 05:43] LABS: INR-International Normal Ratio 1.5; Prothrombin Time 18.3 sec (12.0-14.7)
[2021-07-18 08:22] LABS: Potassium 3.8 mmol/L (3.5-5.1)
[2021-07-18] MEDS: Lisinopril 5 MG TAB PO SCH (09:18)
[2021-07-18] MEDS: Aspirin Chewable 81 MG TAB PO SCH (09:18)
[2021-07-18] MEDS: busPIRone HCl 5 MG TAB PO SCH ×2 (09:20→21:16)
[2021-07-18] MEDS: Famotidine 20 MG TAB PO SCH ×2 (09:20→21:17)
[2021-07-18] MEDS: predniSONE 20 MG TAB PO SCH (09:21)
[2021-07-18] MEDS: Amlodipine 10 MG TAB PO SCH (09:22)
[2021-07-18] MEDS: Escitalopram Oxalate 10 mg Tablet PO SCH (09:22)
[2021-07-18] MEDS: Carvedilol 6.25 MG TAB PO SCH ×2 (09:23→18:11)
[2021-07-18] MEDS: Furosemide 40 MG TAB PO SCH ×2 (09:31→13:24)
[2021-07-18] MEDS: Warfarin Sodium 5 MG TAB PO SCH (18:13)
[2021-07-18] MEDS: HumaLOG 300 UNITS/3 ML VIAL SC PRN (18:31)
[2021-07-18] MEDS: rOPINIRole HCl 0.25 MG TAB PO SCH (21:16)
[2021-07-18] MEDS: traZODone HCl 50 MG TAB PO PRN (21:17)
[2021-07-18] MEDS: Nicotine 21 MG PATCH TD SCH (21:17)
[2021-07-19 06:03] VITALS: TEMP 98.7
[2021-07-19] MEDS: busPIRone HCl 5 MG TAB PO SCH (08:55)
[2021-07-19] MEDS: Aspirin Chewable 81 MG TAB PO SCH (08:55)
[2021-07-19] MEDS: Lisinopril 5 MG TAB PO SCH (08:56)
[2021-07-19] MEDS: Famotidine 20 MG TAB PO SCH (08:56)
[2021-07-19] MEDS: predniSONE 20 MG TAB PO SCH (08:57)
[2021-07-19] MEDS: Carvedilol 6.25 MG TAB PO SCH (08:58)
[2021-07-19] MEDS: Furosemide 40 MG TAB PO SCH ×2 (08:59→14:11)
[2021-07-19] MEDS: Amlodipine 10 MG TAB PO SCH (08:59)
[2021-07-19] MEDS: Escitalopram Oxalate 10 mg Tablet PO SCH (08:59)
[2021-07-19 09:02] VITALS: BP 100/60
== END 2021-07-19 14:45 | disposition home or self-care (01) | DRG 191 ==
LOC: BURMED 22:35
PROVIDERS: ADMIT Family Medicine; ATTEND Family Medicine
DX: J44.1 Chronic obstructive pulmonary disease with (acute) exacerbation (principal); Z68.41 Body mass index [BMI] 40.0-44.9, adult; E66.01 Morbid (severe) obesity due to excess calories; I50.9 Heart failure, unspecified; I48.91 Unspecified atrial fibrillation; I11.0 Hypertensive heart disease with heart failure; Z20.822 Contact with and (suspected) exposure to COVID-19; R53.81 Other malaise; Z87.891 Personal history of nicotine dependence; Z79.82 Long term (current) use of aspirin; Z79.899 Other long term (current) drug therapy; Z79.01 Long term (current) use of anticoagulants
CPT/HCPCS: 36415; 36416; 80053; 82565; 84132; 85014; 85018; 85025; 85049; 85610; 94640; J1650; J1815; J1956; J7512; J7620; U0003; U0005

== ENCOUNTER 2021-07-22 15:53 | Emergency (ER) | payer MEDICARE | END 2021-07-22 20:53 | disposition disaster alternative care site (69) | LOC: BURERS 15:53 | DX: J44.9 Chronic obstructive pulmonary disease, unspecified (principal); I11.0 Hypertensive heart disease with heart failure; I50.9 Heart failure, unspecified; I48.91 Unspecified atrial fibrillation; Z99.81 Dependence on supplemental oxygen | CPT/HCPCS: 99284 ==